=== PATIENT | male | born 1980 | race Caucasian/White ===

== ENCOUNTER 2022-12-11 17:09 | Emergency (ER) | payer OTHER ==
[2022-12-11 17:26] VITALS: BP 118/62; PULSE 89; RESP 16; TEMP 97.9; BMI 46.7
[2022-12-11] MEDS ORDERED: ACETAMINOPHEN 500 MG TABLET (FP) PO ONE (17:50)
[2022-12-11] MEDS ORDERED: LIDOCAINE 5% TOPICAL PATCH TP ONE (17:58)
[2022-12-11] MEDS ORDERED: METHOCARBAMOL 500 MG TABLET PO ONE (17:58)
[2022-12-11] MEDS ORDERED: METHOCARBAMOL 500 MG TABLET ONE (18:07)
[2022-12-11] MEDS ORDERED: LIDOCAINE 5% TOPICAL PATCH ONE (18:07)
[2022-12-11] MEDS ORDERED: ACETAMINOPHEN 325 MG TABLET (FP) ONE (18:07)
[2022-12-11 20:27] LABS: EPI CELLS 8 /uL (0-25.1); HYALINE CASTS 3 /uL (0-3.1); PH,URINE 5.5 (5.0-8.0); URINE APPEARANCE CLEAR; URINE BACTERIA 33 /uL (0-1359); URINE BILIRUBIN 1+ (NEGATIVE); URINE COLOR DK YELLOW; URINE GLUCOSE (UA) NEGATIVE (NEGATIVE); URINE KETONE 2+ (NEGATIVE); URINE LEUK ESTERASE NEGATIVE (NEGATIVE); URINE NITRITE NEGATIVE (NEGATIVE); URINE PROTEIN 1+ (NEGATIVE); URINE RBC 10 /uL (0-23.9); URINE WBC 12 /uL (0-25.8)
[2022-12-11] MEDS ORDERED: LIDOCAINE PATCH REMOVAL MC SCH (22:00)
== END 2022-12-11 21:00 | disposition home or self-care (01) ==
LOC: JER 17:09
DX: M54.16 Radiculopathy, lumbar region (principal)
CPT/HCPCS: 72131-TC; 81003; 93971-TC; 99285-25